=== PATIENT | female | born 1970 | race Caucasian/White ===

== ENCOUNTER 2025-02-07 21:33 | Emergency (ER) | payer OTHER ==
[2025-02-07 22:33] LABS: CAUTI Indications for Culture Pelvic or flank pain; Glucose, Urine (Dipstick) Normal (Negative); Leukocyte 75 Leu/uL (Negative); Protein, Urine (Dipstick) Negative (Neg-Trace); Specific Gravity, Urine 1.026 (1.002-1.036)
[2025-02-07 22:36] LABS: Bacteria/HPF 1+ HPF (None Seen)
[2025-02-07 22:37] LABS: Urine Culture Reflex Yes Yes
[2025-02-08] MEDS ORDERED: Ketorolac Tromethamine 30 MG (1 mL) VIAL ONE (00:01)
== END 2025-02-08 00:45 | disposition home or self-care (01) ==
LOC: ERS 21:33
DX: N10 Acute pyelonephritis (principal); I10 Essential (primary) hypertension; E11.9 Type 2 diabetes mellitus without complications; F17.210 Nicotine dependence, cigarettes, uncomplicated
CPT/HCPCS: 81001; 87077; 87086; 87186; 96372; 99284; J1885; Q0162